=== PATIENT | female | born 1980 | race Caucasian/White ===

== ENCOUNTER 2019-12-01 16:07 | Emergency (ER) | payer BC, OTHER ==
[~2019-12-01] VITALS: Ht 177.8 cm; Wt 74.8 kg
--- NOTE | 2019-12-01 16:12 | NUR ---
BIBRA FROM HOME TO ER BED 04 PRESENTED W/ L WRIST DEFORMITY S/P PERFORMING A BACK SPRING. PT WAS GIVEN 100MCG FENTANYL FOR PAIN MANAGEMENT. 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 STABLE VITALS. AWAITING MD DHILLON.
--- NOTE | 2019-12-01 16:14 | NUR ---
DEXTER PALOMARES AT BEDSIDE FOR EVAL.
[2019-12-01] MEDS ORDERED: MORPHINE SULFATE INJ 4 MG/ML DISP.SYRIN ONE (16:45)
[2019-12-01] MEDS ORDERED: MORPHINE SULFATE INJ 2 MG/ML DISP.SYRIN IV ONE (17:00)
[2019-12-01 17:31] VITALS: BP 118/65
--- NOTE | 2019-12-01 17:31 | NUR ---
R WRIST SPLINTED. Patient discharged to home in stable condition. Written and verbal after care instructions given. Patient verbalizes understanding of instruction.IV removed. Catheter intact and site benign. Pressure and 4x4 applied to site. No bleeding noted.
== END 2019-12-01 17:32 | disposition home or self-care (01) ==
LOC: ER 16:11
DX: S52.592A Other fractures of lower end of left radius, initial encounter for closed fracture (principal); W18.39XA Other fall on same level, initial encounter; Y93.89 Activity, other specified; Y92.89 Other specified places as the place of occurrence of the external cause; Y99.8 Other external cause status
CPT/HCPCS: 29125; 73110; 96374; 99283; J2270